=== PATIENT | male | born 1990 | race Caucasian/White ===

== ENCOUNTER → 2017-08-16 | Emergency (ER) | payer OTHER ==
[~2017-08-16] MED LIST: HYOSCYAMINE SULFATE 0.125 MG TAB PO ONE; MAG HYDROX/AL HYDROX/SIMETH 30 ML UDCUP PO ONE; METOCLOPRAMIDE 10 MG/2 ML VIAL IVP ONE; NS 1,000 ML IV ONE; ONDANSETRON 4 MG/2 ML VIAL IVP ONE; PANTOPRAZOLE SODIUM 40 MG TAB PO ONE
[2017-08-16 16:05] LABS: PLATELET COUNT 258 10^3/uL (150-400)
--- NOTE | 2017-08-16 16:20 | EDPHY ---
H & P Stated Complaint: PT. states mid upper abd pain flare up,constant cramping and stabbing,4am Time Seen by Provider: 08/16/17 15:50 HPI/ROS: This patient reports a 2 year history of intermittent epigastric abdominal pain. I saw him in March of 2015 for the same complaint toward the beginning of this ailment and he had normal labs at that time and improved with a GI cocktail. I started him on Protonix and recommended that he bring a stool sample in for an H pylori test. He admits that he was embarrassed by the prospect of collecting stool and did follow-up. He does not recall if the proton pump inhibitor improved to symptoms or not. This pain had been intermittent and mild until 4:00 a.m. Yesterday morning when the pain intensity increased in became constant. He describes colicky pain occasionally sharp 7/ 10 intensity currently. It is nonradiating. He reports that worsened when he ate food and notes no other exacerbating or alleviating factors. A friend drove him here by private vehicle for further evaluation of his symptoms. ROS: Constitutional: No recent fevers or chills. No fatigue. HEENT: He had URI symptoms 2 weeks ago that have since resolved. No current HEENT complaints. Pulmonary: No significant coughing. No dyspnea currently. Cardiovascular: No chest pain or heart palpitations. No lightheadedness GI: He has soft stools. No dark tarry stools. He reports nausea but no vomiting. The pain does not radiate to his back. No bloating. He has diminished appetite today in part because of concern that food intake may worsen his pain as a did earlier. : No flank pain or hematuria. Testicular pain or swelling Integumentary: No pallor or rash. No diaphoresis. Neuro: No focal numbness tingling weakness. Complete review of symptoms otherwise negative. Source: Patient Exam Limitations: No limitations - Personal History Current Tetanus Diphtheria and Acellular Pertussis (TDAP): Unsure - Medical/Surgical History Hx Asthma: No Hx Chronic Respiratory Disease: No Hx Diabetes: No Hx Cardiac Disease: No Hx Renal Disease: No Hx Cirrhosis: No Hx Alcoholism: No Hx HIV/AIDS: No Hx Splenectomy or Spleen Trauma: No Other PMH: Med hx-none. Surg-tonsils,appy - Family History Significant Family History: No pertinent family hx - Social History Smoking Status: Former smoker Alcohol Use: None Drug Use: Marijuana (He smokes marijuana most days.) - Physical Exam Exam: General Appearance: Alert, no distress. Eyes: Pupils equal and round no pallor or injection. ENT, Mouth: Mucous membranes moist. Respiratory: There are no retractions, lungs are clear to auscultation. Cardiovascular: Regular rate and rhythm. No murmur gallop or rub. No JVD. Gastrointestinal: Hyperactive bowel sounds. Soft, patient has moderate epigastric tenderness with no guarding or rebound. He also has mild diffuse tenderness. Neurological: GCS 15 with no focal deficits. Back: No CVA tenderness but something in his back bothers his belly a bit. : No testicular tenderness Skin: Warm and dry, no rashes. Musculoskeletal: Neck is supple nontender. Extremities are symmetrical, full range of motion. Psychiatric: Mood and affect normal DIFFERENTIAL DIAGNOSIS: After history and physical exam differential diagnosis was considered for food intolerance/allergy, inflammatory bowel disease, irritable bowel disease, lactose intolerance, pancreatitis, cholecystitis, gastritis, ulcer Constitutional: Initial Vital Signs Temperature (C) 36.6 C 08/16/17 15:42 Heart Rate 74 08/16/17 15:42 Respiratory Rate 16 08/16/17 15:42 Blood Pressure 130/69 H 08/16/17 15:42 O2 Sat (%) 96 08/16/17 15:42 O2 Delivery Mode Room Air Allergies/Adverse Reactions: sumatriptan [From Imitrex] Allergy (Verified 08/16/17 15:41) sumatriptan succinate [From Imitrex] Allergy (Verified 08/16/17 15:41) Home Medications: Medication Instructions Recorded Hyoscyamine Sulfate [Levsin, 0.125 - 0.25 mg SL Q6 PRN #20 tab 08/16/17 Hyomax-Sl 0.125 mg (*)] Ondansetron Odt [Zofran Odt] 4 - 8 mg PO Q4PRN PRN #4 tab 08/16/17 Pantoprazole Sodium [Protonix 40mg 40 mg PO DAILY #20 tab 08/16/17 (*)] Medical Decision Making ED Course/Re-evaluation: IV normal saline bolus Levsin sublingual and Maalox p.o. Zofran IV Patient's came to the emergency department and during the patient in the room. The patient did not have much relief from initial round of medications. This was followed with Reglan 10 mg and Benadryl 25 mg IV as well as Protonix 40 mg p. O.. Patient finally had relief down to 2/10 from initial 7/10 pain. Labs: Normal CBC, comp metabolic panel is normal, lipase is normal. urinalysis normal exception of trace leuk esterase Discussion: Patient with epigastric crampy pain and nausea of unclear etiology. After workup, no red flag findings that would suggest cholecystitis, pancreatitis or other concerning findings. He does not have a surgical abdomen. He had increased bowel sounds on exam. I suspect he has a food intolerance such as gluten, overuse of marijuana contributing to nausea and cramping or IBS. I counseled the patient encouraging him to stop marijuana at least for period of time to see if this helps with his symptoms. Also encouraged him to try cutting a week for period of time, have a bland diet, and start antacids. Levsin if needed and Zofran if needed in addition for symptoms. I also explained that he could have gastritis or early ulcer. Encouraged follow up with primary care physician provided a primary care physician phone number for him as well as Dr. Mccarthy is of GI for further follow-up if needed. He understands the need to return emergency department should he develop any significant worsening despite the treatment plan. - Data Points Laboratory Results: Laboratory Results 08/16/17 16:00 08/16/17 16:00 08/16/17 08/16/17 08/16/17 17:15 16:00 16:00 WBC 8.84 10^3/uL 10^3/uL (3.80-9.50) RBC 5.41 10^6/uL 10^6/uL (4.40-6.38) Hgb 17.1 g/dL g/dL (13.7-17.5) Hct 48.5 % % (40.0-51.0) MCV 89.6 fL fL (81.5-99.8) MCH 31.6 pg pg (27.9-34.1) MCHC 35.3 g/dL g/dL (32.4-36.7) RDW 13.2 % % (11.5-15.2) Plt Count 258 10^3/uL 10^3/uL (150-400) MPV 9.6 fL fL (8.7-11.7) Neut % (Auto) 58.3 % % (39.3-74.2) Lymph % (Auto) 33.3 % % (15.0-45.0) [place] % (Auto) 5.2 % % (4.5-13.0) Eos % (Auto) 2.5 % % (0.6-7.6) Baso % (Auto) 0.5 % % (0.3-1.7) Nucleat RBC Rel Count 0.0 % % (0.0-0.2) Absolute Neuts (auto) 5.16 10^3/uL 10^3/uL (1.70-6.50) Absolute Lymphs (auto) 2.94 10^3/uL 10^3/uL (1.00-3.00) Absolute Monos (auto) 0.46 10^3/uL 10^3/uL (0.30-0.80) Absolute Eos (auto) 0.22 10^3/uL 10^3/uL (0.03-0.40) Absolute Basos (auto) 0.04 10^3/uL 10^3/uL (0.02-0.10) Absolute Nucleated RBC 0.00 10^3/uL 10^3/uL (0-0.01) Immature Gran % 0.2 % % (0.0-1.1) Immature Gran # 0.02 10^3/uL 10^3/uL (0.00-0.10) Sodium 142 mEq/L mEq/L (135-145) Potassium 4.2 mEq/L mEq/L (3.3-5.0) Chloride 105 mEq/L mEq/L (97-110) Carbon Dioxide 23 mEq/l mEq/l (22-31) Anion Gap 14 mEq/L mEq/L (8-16) BUN 13 mg/dL mg/dL (7-23) Creatinine 0.8 mg/dL mg/dL (0.7-1.3) Estimated GFR > 60 Glucose 92 mg/dL mg/dL (70-100) Calcium 9.5 mg/dL mg/dL (8.5-10.4) Total Bilirubin 1.3 mg/dL mg/dL (0.1-1.4) AST 15 IU/L L IU/L (17-59) ALT 25 IU/L IU/L (21-72) Alkaline Phosphatase 36 IU/L L IU/L (38-126) Total Protein 7.8 g/dL g/dL (6.3-8.2) Albumin 4.7 g/dL g/dL (3.5-5.0) Lipase 48 IU/L IU/L (23-300) Urine Color YELLOW Urine Appearance CLEAR Urine pH 7.0 (5.0-7.5) Ur Specific [place] 1.010 (1.002-1.030) Urine Protein NEGATIVE (NEGATIVE) Urine Ketones NEGATIVE (NEGATIVE) Urine Blood NEGATIVE (NEGATIVE) Urine Nitrate NEGATIVE (NEGATIVE) Urine Bilirubin NEGATIVE (NEGATIVE) Urine Urobilinogen 0.2 EU EU (0.2-1.0) Ur Leukocyte Esterase TRACE H (NEGATIVE) Urine RBC NONE SEEN /hpf /hpf (0-3) Urine WBC OCCASIONAL /hpf /hpf (0-3) Ur Epithelial Cells TRACE /lpf /lpf (NONE-1+) Urine Glucose NEGATIVE (NEGATIVE) Medications Given: Discontinued Medications Al Hydroxide/Mg Hydroxide (Maalox Susp) 30 ml PO EDNOW ONE Stop: 08/16/17 16:12 Last Admin: 08/16/17 16:17 Dose: 30 ml Diphenhydramine HCl (Benadryl Injection) 25 mg IVP EDNOW ONE Stop: 08/16/17 16:48 Last Admin: 08/16/17 16:53 Dose: 25 mg Hyoscyamine Sulfate (Levsin, Hyomax-Sl) 0.25 mg PO EDNOW ONE Stop: 08/16/17 16:12 Last Admin: 08/16/17 16:19 Dose: 0.25 mg Sodium Chloride (Ns) 1,000 mls @ 0 mls/hr IV EDNOW ONE; Wide Open PRN Reason: Protocol Stop: 08/16/17 15:52 Last Admin: 08/16/17 16:16 Dose: 1,000 mls Metoclopramide HCl (Reglan Injection) 10 mg IVP EDNOW ONE Stop: 08/16/17 16:48 Last Admin: 08/16/17 16:55 Dose: 10 mg Ondansetron HCl (Zofran) 4 mg IVP EDNOW ONE Stop: 08/16/17 16:22 Last Admin: 08/16/17 16:24 Dose: 4 mg Pantoprazole Sodium (Protonix) 40 mg PO EDNOW ONE Stop: 08/16/17 17:14 Last Admin: 08/16/17 17:38 Dose: 40 mg Departure - Departure Disposition: Home, Routine, Self-Care Clinical Impression: Epigastric cramping, Nausea Gastritis Qualifiers: Gastritis type: unspecified gastritis Chronicity: acute Gastritis bleeding: without bleeding Qualified Code(s): K29.00 - Acute gastritis without bleeding Condition: Good Instructions: Hyoscyamine (By mouth), Ondansetron (By mouth), Pantoprazole (By mouth), Acute Abdominal Pain (ED) Additional Instructions: Diagnosis: Epigastric crampy abdominal pain 2. Gastritis 2. Nausea Plan: Try cutting out dairy products for period of time as this is the most common food intolerance. Since MJ is lipid soluble, it builds up in your adipose tissues with regular use and can cause nausea, vomiting and cramping pain. I advised taking breaks from this to allow it to clear out of your body, as this alone may resolve your symptoms. Start Pepcid or protonix or Prilosec [id number] antacids 40 mg a day Maalox in addition zofran for nausea if needed Levsin for acute cramping in addition if needed. [place] diet until you feel improved Call Dr. Daley-internal controls specialist arrange follow-up appointments that you have a primary care physician you can see. Consider seeing Dr. Lee -GI specialist for further workup abdominal pain Return to the emergency department for any significant worsening despite the treatment plan Referrals: NONE *PRIMARY CARE P,. [Primary Care Provider] - As per Instructions Arvin Daley MD [Medical Doctor] - As per Instructions Korin Lee MD [Medical Doctor] - As per Instructions AAKASH UMANZOR [Medical Doctor] - As per Instructions Prescriptions: Hyoscyamine Sulfate [Levsin, Hyomax-Sl 0.125 mg (*)] 0.125 - 0.25 mg SL Q6 PRN # 20 tab PRN Reason: abdominal cramping Ondansetron Odt [Zofran Odt] 4 - 8 mg PO Q4PRN PRN #4 tab PRN Reason: Vomiting Pantoprazole Sodium [Protonix 40mg (*)] 40 mg PO DAILY #20 tab
[2017-08-16 18:02] VITALS: BP 112/53
== END | disposition home or self-care (01) ==
LOC: CED 15:35
DX: K29.00 Acute gastritis without bleeding (principal); E86.9 Volume depletion, unspecified; Z87.891 Personal history of nicotine dependence
CPT/HCPCS: 80053-PO; 81003-PO; 81015-PO; 83690-PO; 85025-PO; 96374; J1200; J2405; J2765